=== PATIENT | female | born 1965 | race Caucasian/White ===

== ENCOUNTER 2020-05-18 14:20 | Emergency (ER) | payer MEDICAID ==
[~2020-05-18] VITALS: Ht 160 cm; Wt 54.4 kg
[~2020-05-18 14:20] MED LIST: GEMF600T; LISI-708; METF-371; PROC10TA2; SITA100T7; WARF4TAB2
[2020-05-18 15:22] VITALS: BP 127/69
[2020-05-18] MEDS ORDERED: IBUPROFEN 800 MG TAB PO ONE (15:45)
== END 2020-05-18 16:19 | disposition home or self-care (01) ==
LOC: EDBD 14:20 → ER 14:20
DX: S93.402A Sprain of unspecified ligament of left ankle, initial encounter (principal); X58.XXXA Exposure to other specified factors, initial encounter; Y93.01 Activity, walking, marching and hiking; Y92.89 Other specified places as the place of occurrence of the external cause; Y99.8 Other external cause status
CPT/HCPCS: 73610

== ENCOUNTER 2020-06-12 17:46 | Inpatient (IN) | payer MEDICAID ==
[~2020-06-12] VITALS: Ht 167.6 cm; Wt 68.8 kg
[2020-06-12] MEDS ORDERED: SODIUM CHLORIDE 0.9% 1,000 ML IV ONE (18:45)
[2020-06-12 21:35] LABS: Basophils # (auto) 0 10 ^3/uL (0-0.2); Basophils % (auto) 0.9 % (0.0-2.0); Eosinophils # (auto) 0.2 10 ^3/uL (0-0.8); Hemoglobin 12.4 g/dL (12.2-16.2); Lymphocytes # (auto) 0.9 10 ^3/uL (0.4-5.4); Lymphocytes % (auto) 19.9 % (10.0-50.0); Mean Corpuscular Hemoglobin 27.1 pg (28.0-32.0); Mean Corpuscular Hgb Conc. 31.9 g/dL (32.0-36.0); Monocytes # (auto) 0.3 10 ^3/uL (0-1.3); Neutrophils % (auto) 69.2 % (37.0-80.0); Nucleated Red Blood Cells % 0.2 %; Platelet Count (auto) 267 10^3/uL (140-450); Red Blood Cells 4.58 10^6/uL (4.0-5.20); Red Cell Distribution Width 18.7 % (11.8-14.3); White Blood Cell 4.4 10^3/uL (4.4-10.8)
[2020-06-12 21:51] LABS: BUN/Creatinine Ratio 29.2; Calcium 10.2 mg/dL (8.5-10.1); Magnesium 2.1 mg/dL (1.6-2.6); Potassium 4.4 mmol/L (3.5-5.1)
[2020-06-12 21:57] LABS: Bilirubin, Total 0.3 mg/dL (0.2-1.0); Total Protein 6.9 g/dL (6.4-8.2)
[2020-06-13] MEDS ORDERED: ACETAMINOPHEN 325 MG TAB PO PRN (00:45)
[2020-06-13] MEDS ORDERED: DEXTROSE (50%) 50ML SYRG IV PRN (00:45)
[2020-06-13] MEDS ORDERED: ONDANSETRON HCL 4 MG/2 ML VIAL IV PRN (00:45)
[2020-06-13] MEDS ORDERED: DOCUSATE SOD 100 MG CAP PO PRN (00:45)
[2020-06-13] MEDS ORDERED: TEMAZEPAM 15 MG CAP PO PRN (00:45)
--- NOTE | 2020-06-13 02:00 | NUR ---
pt arrived from ED department and assessed. pt refused to have her skin photographed at this time. pt AAOx4 to PPT but not able to verbalize reason for admit. pt was oriented to room and use of call light for assistance. bed in lowest and locked position with rails up x2, call light within reach of pt.
[2020-06-13] MEDS ORDERED: RIV15T PO (02:10)
[2020-06-13] MEDS ORDERED: DAPA1TAB4 PO (02:10)
--- NOTE | 2020-06-13 03:55 | NUR ---
attempted to obtain accu check on pt, pt refused to have accu check performed at this time. will make day shift RN aware. unable to administer pt's order insulin without accu check results.
[2020-06-13] MEDS: ACCU-CHEK COMFORT CURVE STRIP VI SCH ×6 (04:00→23:50)
[2020-06-13] MEDS: InsuLIN REG 1unit/0.01ml Soln (100units/ml) SC SCH ×6 (04:00→23:50)
[2020-06-13 05:00] VITALS: BP 104/67
[2020-06-13] MEDS: SODIUM CHLORIDE 0.9% 1,000 ML IV SCH ×2 (05:33→17:46)
[2020-06-13 08:00] VITALS: BP 87/48
[2020-06-13 09:00] VITALS: BP 97/57
[2020-06-13 10:30] LABS: Basophils # (auto) 0 10 ^3/uL (0-0.2); Basophils % (auto) 1.2 % (0.0-2.0); Eosinophils # (auto) 0.2 10 ^3/uL (0-0.8); Hemoglobin 11.4 g/dL (12.2-16.2); Lymphocytes # (auto) 0.8 10 ^3/uL (0.4-5.4); Lymphocytes % (auto) 20.5 % (10.0-50.0); Mean Corpuscular Hemoglobin 27.6 pg (28.0-32.0); Mean Corpuscular Hgb Conc. 31.7 g/dL (32.0-36.0); Monocytes # (auto) 0.3 10 ^3/uL (0-1.3); Monocytes % (auto) 6.8 % (0.0-12.0); Neutrophils # (auto) 2.5 10 ^3/uL (1.6-8.6); Neutrophils % (auto) 65.5 % (37.0-80.0); Nucleated Red Blood Cells % 0.4 %; Platelet Count (auto) 233 10^3/uL (140-450); Red Blood Cells 4.14 10^6/uL (4.0-5.20); Red Cell Distribution Width 18.5 % (11.8-14.3); White Blood Cell 3.9 10^3/uL (4.4-10.8)
[2020-06-13 10:47] LABS: Calcium 9.8 mg/dL (8.5-10.1); Potassium 3.8 mmol/L (3.5-5.1)
[2020-06-13 13:00] VITALS: BP 126/74
--- NOTE | 2020-06-13 16:30 | NUR ---
DR. WILLIAMSON NOTIFIED OF RESULT EXTREMITY VENOUS STUDY EXTENSIVE SADIE DVT. NEW ORDER OBTAINED LOVENOX 1MG/KG Q HRS. WILL CARRY OUT ORDER.
[2020-06-13] MEDS: MORPHINE SULF INJ 2 MG/ML SYRINGE 1ML IV PRN (16:53)
[2020-06-13 16:54] VITALS: BP 103/67
--- NOTE | 2020-06-13 19:15 | NUR ---
assumed care, pt. awake, no c/o pain, no sob.
[2020-06-13 20:37] LABS: Urine Bacteria FEW /hpf (None Seen); Urine Blood Negative /uL (Negative); Urine Specific Gravity 1.007 (1.001-1.035); Urine WBC 1 /hpf (0 - 5)
[2020-06-13 20:44] LABS: Alcohol, Urine < 3.0 mg/dL (0-10); Amphetamine Screen, Urine NEGATIVE (NEGATIVE); Barbiturate Scree,Urine NEGATIVE (NEGATIVE); Benzodiazephine Screen, Urine NEGATIVE (NEGATIVE); Cannabinoid Screen, Urine NEGATIVE (NEGATIVE); Cocaine Screen, Urine NEGATIVE (NEGATIVE); Opiate Scree,Urine NEGATIVE (NEGATIVE); Phencyclidine Screen, Urine NEGATIVE (NEGATIVE)
[2020-06-13] MEDS: ENOXAPARIN SOD 60 MG/0.6 ML SYRINGE SC SCH (21:12)
[2020-06-13] MEDS: ATORVASTATIN 20 MG TAB PO SCH (21:12)
[2020-06-13 22:00] VITALS: BP 101/62
[2020-06-13] MEDS ORDERED: LORazepam 2MG/ML-1ML VIAL IV PRN (23:45)
[2020-06-14] MEDS: MORPHINE SULF INJ 2 MG/ML SYRINGE 1ML IV PRN (03:15)
[2020-06-14] MEDS: InsuLIN REG 1unit/0.01ml Soln (100units/ml) SC SCH ×5 (04:00→20:42)
[2020-06-14] MEDS: ACCU-CHEK COMFORT CURVE STRIP VI SCH ×5 (04:03→20:41)
[2020-06-14 05:00] VITALS: BP 99/64
[2020-06-14 07:52] LABS: BUN/Creatinine Ratio 35.1; Calcium 9.8 mg/dL (8.5-10.1); Potassium 4.3 mmol/L (3.5-5.1)
--- NOTE | 2020-06-14 08:23 | NUR ---
Opening Shift Note Assumed patient care from [facility]. Patient currently sitting up in bed, eating breakfast. No signs of distress at this time. Patient is AOx3-4, on room air, respirations even and unlabored. Safety precautions in place, patient encouraged to call PRN. Will continue to monitor.
[2020-06-14 08:58] VITALS: BP 101/59
[2020-06-14] MEDS: ENOXAPARIN SOD 60 MG/0.6 ML SYRINGE SC SCH ×2 (09:38→21:38)
[2020-06-14] MEDS: SODIUM CHLORIDE 0.9% 1,000 ML IV SCH (09:38)
[2020-06-14] MEDS: HYDROcodone-ACET 5/325MG TAB PO PRN ×2 (09:55→14:37)
[2020-06-14 13:00] VITALS: BP_SYST 111; BP_SYST 144; BP_DIAS 106; BP_DIAS 67
--- NOTE | 2020-06-14 14:10 | NUR ---
at Bedside Dr. Roper at bedside discussing plan of care with patient. New orders received.
[2020-06-14] MEDS ORDERED: cefTRIAXone 1GM/50ML D5W 50 ML IV ONE (14:15)
--- NOTE | 2020-06-14 15:44 | NUR ---
New IV New IV started on left forearm, 22gauge. Patient tolerated well. Blood return noted, flushes easily. Right forearm IV discontinued due to signs of infiltration and pain. Safety precautions in place, patient encouraged to call PRN, call light within reach. Will continue to monitor.
[2020-06-14 17:00] VITALS: BP 106/65
--- NOTE | 2020-06-14 17:30 | NUR ---
at Station Dr. Mendoza at station, no new orders at this time.
[2020-06-14] MEDS: ATORVASTATIN 20 MG TAB PO SCH (21:38)
[2020-06-14 22:00] VITALS: BP 87/49
[2020-06-15 00:16] VITALS: BP 106/67
[2020-06-15] MEDS: ACCU-CHEK COMFORT CURVE STRIP VI SCH ×6 (00:19→21:00)
[2020-06-15] MEDS: HYDROcodone-ACET 5/325MG TAB PO PRN ×2 (00:42→08:42)
[2020-06-15] MEDS: LORazepam 0.5 MG TAB PO PRN ×2 (01:45→21:09)
[2020-06-15] MEDS: SODIUM CHLORIDE 0.9% 1,000 ML IV SCH ×2 (02:40→21:03)
[2020-06-15] MEDS: InsuLIN REG 1unit/0.01ml Soln (100units/ml) SC SCH ×6 (04:31→22:12)
[2020-06-15 05:00] VITALS: BP 92/52
[2020-06-15 06:35] LABS: Basophils # (auto) 0 10 ^3/uL (0-0.2); Basophils % (auto) 1.2 % (0.0-2.0); Eosinophils # (auto) 0.2 10 ^3/uL (0-0.8); Eosinophils % (auto) 6.1 % (0.0-7.0); Hematocrit 36.7 % (36.0-46.0); Hemoglobin 11.6 g/dL (12.2-16.2); Lymphocytes # (auto) 1.6 10 ^3/uL (0.4-5.4); Lymphocytes % (auto) 41.9 % (10.0-50.0); Mean Corpuscular Hemoglobin 27.2 pg (28.0-32.0); Mean Corpuscular Hgb Conc. 31.7 g/dL (32.0-36.0); Mean Corpuscular Volume 85.6 fL (80.0-100.0); Monocytes # (auto) 0.3 10 ^3/uL (0-1.3); Monocytes % (auto) 7.3 % (0.0-12.0); Neutrophils # (auto) 1.7 10 ^3/uL (1.6-8.6); Neutrophils % (auto) 43.5 % (37.0-80.0); Nucleated Red Blood Cells % 0.1 %; Platelet Count (auto) 231 10^3/uL (140-450); Red Blood Cells 4.28 10^6/uL (4.0-5.20); Red Cell Distribution Width 18.2 % (11.8-14.3); White Blood Cell 3.9 10^3/uL (4.4-10.8)
[2020-06-15 06:48] LABS: BUN/Creatinine Ratio 34.1; Calcium 9.7 mg/dL (8.5-10.1); Potassium 4.2 mmol/L (3.5-5.1)
--- NOTE | 2020-06-15 07:30 | NUR ---
Opening Shift Note Assumed patient care from NOC RN. Patient sitting up in bed, no signs of distress at this time. Respirations even and unlabored on room air. Safety precautions in place, call light within reach.
[2020-06-15] MEDS: cefTRIAXone 1GM/50ML D5W 50 ML IV SCH (08:42)
[2020-06-15] MEDS: ENOXAPARIN SOD 60 MG/0.6 ML SYRINGE SC SCH ×2 (08:42→21:09)
[2020-06-15 09:00] VITALS: BP 111/63
--- NOTE | 2020-06-15 09:00 | NUR ---
Weekend immigration law specialist-I did not receive a page regarding the social service consult for this patient.
[2020-06-15] MEDS ORDERED: PROCHLORPERAZINE MALEATE 10 MG TAB PO PRN (12:15)
[2020-06-15 13:00] VITALS: BP_SYST 103; BP_SYST 98; BP_DIAS 65; BP_DIAS 70
--- NOTE | 2020-06-15 13:00 | NUR ---
at bedside Dr. Roper at bedside discussing plan of care with patient.
[2020-06-15 13:57] LABS: INR 1.04 (0.9-1.15)
[2020-06-15] MEDS ORDERED: diphenhdrAMINE HCL 25 MG CAP PO PRN (14:30)
--- NOTE | 2020-06-15 14:30 | NUR ---
Spoke with YOVANI Spoke with Deepa PINA regarding patient status.
--- NOTE | 2020-06-15 16:28 | NUR ---
SS consult due to pt being homeless. Per pt prior to her admission to [facility] she was at a board and care for one day. Prior to that board and care she was at [facility]. Discussed with pt options for placement upon discharge. Pt states she cant do anything for herself and that the previous facility could not help her. Pt also states she has no income and was not paying for board and care. Discussed with pt that the only options would be skilled facility for physical therapy or prison placement. Requested pt expound on her needs and what shes unable to do. Pt could only state she cant dress herself but no specific reason why. Explained to pt that therapy at a facility requires her to get up and work with the therapist but pt states she doesnt like it when they tell her what to do. Explained this is all a part of the therapy and helping her to get better. Pt states she would go to the board and [facility] but has no information on the phone number or name of facility. If information can be obtained on [facility] and they are willing to accept pt she could return with home health and a wheelchair. To followup on obtaining name of previous facility. Addendum: 06/15/20 at 1628 by JAMI RAYMOND Amended: Links added.
[2020-06-15 17:00] VITALS: BP 99/64
[2020-06-15] MEDS ORDERED: WARFARIN SODIUM 2 MG TAB PO ONE (17:00)
--- NOTE | 2020-06-15 18:37 | NUR ---
Home Meds Per Dr. Roper request, asked patient about home medications and if she has them available. Per patient, she currently does not have an prescriptions filled. Per MD, will continue with plan of care and continue ordered medications.
--- NOTE | 2020-06-15 18:38 | NUR ---
Wrong Time: 3036
[2020-06-15] MEDS: ATORVASTATIN 20 MG TAB PO SCH (21:09)
[2020-06-15 22:31] VITALS: BP 104/62
[2020-06-16] MEDS: ACCU-CHEK COMFORT CURVE STRIP VI SCH ×6 (01:06→20:19)
[2020-06-16] MEDS: InsuLIN REG 1unit/0.01ml Soln (100units/ml) SC SCH ×6 (01:14→20:20)
[2020-06-16 05:23] VITALS: BP 115/70
[2020-06-16 06:09] LABS: Basophils # (auto) 0.1 10 ^3/uL (0-0.2); Basophils % (auto) 1.2 % (0.0-2.0); Eosinophils # (auto) 0.2 10 ^3/uL (0-0.8); Eosinophils % (auto) 4.9 % (0.0-7.0); Hematocrit 37.2 % (36.0-46.0); Lymphocytes # (auto) 1.4 10 ^3/uL (0.4-5.4); Lymphocytes % (auto) 30.4 % (10.0-50.0); Mean Corpuscular Hemoglobin 27.5 pg (28.0-32.0); Mean Corpuscular Hgb Conc. 32.2 g/dL (32.0-36.0); Mean Corpuscular Volume 85.2 fL (80.0-100.0); Monocytes # (auto) 0.3 10 ^3/uL (0-1.3); Monocytes % (auto) 7.5 % (0.0-12.0); Neutrophils # (auto) 2.6 10 ^3/uL (1.6-8.6); Nucleated Red Blood Cells % 0.2 %; Platelet Count (auto) 227 10^3/uL (140-450); Red Blood Cells 4.36 10^6/uL (4.0-5.20); Red Cell Distribution Width 17.7 % (11.8-14.3); White Blood Cell 4.6 10^3/uL (4.4-10.8)
[2020-06-16 06:17] LABS: INR 1.06 (0.9-1.15)
[2020-06-16 06:23] LABS: BUN/Creatinine Ratio 31.4; Calcium 9.5 mg/dL (8.5-10.1); Potassium 4.2 mmol/L (3.5-5.1)
[2020-06-16 09:00] VITALS: BP 96/54
[2020-06-16] MEDS: cefTRIAXone 1GM/50ML D5W 50 ML IV SCH (09:27)
[2020-06-16] MEDS: ENOXAPARIN SOD 60 MG/0.6 ML SYRINGE SC SCH ×2 (10:21→22:05)
[2020-06-16] MEDS: GEMFIBROZIL 600 MG TAB PO SCH (10:21)
[2020-06-16] MEDS: HYDROcodone-ACET 5/325MG TAB PO PRN ×2 (10:35→16:50)
[2020-06-16] MEDS: SODIUM CHLORIDE 0.9% 1,000 ML IV SCH (11:52)
--- NOTE | 2020-06-16 12:52 | NUR ---
Est energy needs 5351-2865 kcal (25-27 kcal/kg BW 70kg) Est protein needs 56-70g (0.8-1g/kg BW 70kg) will reassess prn. Addendum: 06/16/20 at [address] Amended: Links added.
[2020-06-16 12:54] VITALS: BP 123/74
[2020-06-16 17:00] VITALS: BP 98/61
[2020-06-16] MEDS ORDERED: WARFARIN SODIUM 5 MG TAB PO ONE (17:00)
--- NOTE | 2020-06-16 19:10 | NUR ---
Opening Shift Note Assumed care of patient, awake and alert. No S/S of distress/SOB or pain. Instructed on POC and to call for assist PRN, will continue to monitor for changes Q1hr and PRN. Bed locked in lowest position, HOB elevated at least 30 degrees, call light is within reach and side rails up x 2.
[2020-06-16 22:00] VITALS: BP 93/58
[2020-06-16] MEDS: ATORVASTATIN 20 MG TAB PO SCH (22:04)
[2020-06-17] MEDS: ACCU-CHEK COMFORT CURVE STRIP VI SCH ×6 (00:22→20:00)
[2020-06-17] MEDS: InsuLIN REG 1unit/0.01ml Soln (100units/ml) SC SCH ×6 (00:23→20:00)
[2020-06-17] MEDS: SODIUM CHLORIDE 0.9% 1,000 ML IV SCH ×2 (04:40→22:29)
[2020-06-17 05:30] VITALS: BP 104/53
[2020-06-17 05:51] LABS: Basophils # (auto) 0.1 10 ^3/uL (0-0.2); Basophils % (auto) 1.6 % (0.0-2.0); Eosinophils # (auto) 0.3 10 ^3/uL (0-0.8); Eosinophils % (auto) 7.4 % (0.0-7.0); Hematocrit 38.1 % (36.0-46.0); Lymphocytes # (auto) 1.5 10 ^3/uL (0.4-5.4); Lymphocytes % (auto) 34.5 % (10.0-50.0); Mean Corpuscular Hemoglobin 27.4 pg (28.0-32.0); Mean Corpuscular Hgb Conc. 31.6 g/dL (32.0-36.0); Mean Corpuscular Volume 86.9 fL (80.0-100.0); Monocytes # (auto) 0.3 10 ^3/uL (0-1.3); Monocytes % (auto) 6.5 % (0.0-12.0); Neutrophils # (auto) 2.2 10 ^3/uL (1.6-8.6); Nucleated Red Blood Cells % 0.5 %; Platelet Count (auto) 192 10^3/uL (140-450); Red Blood Cells 4.38 10^6/uL (4.0-5.20); Red Cell Distribution Width 18.5 % (11.8-14.3); White Blood Cell 4.3 10^3/uL (4.4-10.8)
[2020-06-17 06:13] LABS: BUN/Creatinine Ratio 29.8; Calcium 9.5 mg/dL (8.5-10.1); Potassium 4.3 mmol/L (3.5-5.1)
--- NOTE | 2020-06-17 07:19 | NUR ---
END OF SHIFT NOTE ENDORSED CARE TO DAY SHIFT RN
[2020-06-17 08:00] VITALS: BP 108/60
[2020-06-17] MEDS: HYDROcodone-ACET 5/325MG TAB PO PRN ×2 (08:06→18:03)
[2020-06-17] MEDS: cefTRIAXone 1GM/50ML D5W 50 ML IV SCH (08:11)
[2020-06-17] MEDS: GEMFIBROZIL 600 MG TAB PO SCH (09:29)
[2020-06-17] MEDS: ENOXAPARIN SOD 60 MG/0.6 ML SYRINGE SC SCH ×2 (09:29→22:29)
[2020-06-17 10:13] LABS: INR 1.13 (0.9-1.15)
[2020-06-17 12:00] VITALS: BP 95/50
[2020-06-17] MEDS ORDERED: WARFARIN SODIUM 2.5 MG TAB PO ONE (17:00)
[2020-06-17 17:04] VITALS: BP 94/62
--- NOTE | 2020-06-17 20:10 | NUR ---
open note assumed care of pt. upon entering room pt eyes closed, breathing even and unlabored on room air. this nurse woke pt to assess and take her blood glucose, to which she politely refused. this nurse educated on its purpose and she stated "my fingers hurt, i need a break". pt updated on plan of care. pt denies any pain at this time. bed locked, low and 2x rails up. call light in reach, this nurse to round q1hr and prn. pt encouraged to call as needed.
[2020-06-17 22:00] VITALS: BP 94/58
[2020-06-17] MEDS: ATORVASTATIN 20 MG TAB PO SCH (22:29)
[2020-06-18] MEDS: ACCU-CHEK COMFORT CURVE STRIP VI SCH ×4 (00:50→12:13)
[2020-06-18] MEDS: InsuLIN REG 1unit/0.01ml Soln (100units/ml) SC SCH ×4 (00:51→12:14)
[2020-06-18 05:00] VITALS: BP 92/57
[2020-06-18 06:46] LABS: Basophils # (auto) 0 10 ^3/uL (0-0.2); Basophils % (auto) 0.8 % (0.0-2.0); Eosinophils # (auto) 0.3 10 ^3/uL (0-0.8); Hematocrit 37.3 % (36.0-46.0); Hemoglobin 12.2 g/dL (12.2-16.2); Lymphocytes # (auto) 1.7 10 ^3/uL (0.4-5.4); Lymphocytes % (auto) 37.6 % (10.0-50.0); Mean Corpuscular Hemoglobin 27.8 pg (28.0-32.0); Mean Corpuscular Hgb Conc. 32.6 g/dL (32.0-36.0); Mean Corpuscular Volume 85.2 fL (80.0-100.0); Monocytes # (auto) 0.3 10 ^3/uL (0-1.3); Monocytes % (auto) 6.4 % (0.0-12.0); Neutrophils # (auto) 2.2 10 ^3/uL (1.6-8.6); Neutrophils % (auto) 49.2 % (37.0-80.0); Nucleated Red Blood Cells % 0.5 %; Platelet Count (auto) 237 10^3/uL (140-450); Red Blood Cells 4.38 10^6/uL (4.0-5.20); Red Cell Distribution Width 18.6 % (11.8-14.3); White Blood Cell 4.5 10^3/uL (4.4-10.8)
[2020-06-18 06:48] LABS: INR 1.23 (0.9-1.15); Potassium 4.2 mmol/L (3.5-5.1)
[2020-06-18 06:59] LABS: BUN/Creatinine Ratio 38.3
[2020-06-18] MEDS: cefTRIAXone 1GM/50ML D5W 50 ML IV SCH (08:26)
[2020-06-18 09:00] VITALS: BP 100/60
[2020-06-18] MEDS: GEMFIBROZIL 600 MG TAB PO SCH (10:32)
[2020-06-18] MEDS: ENOXAPARIN SOD 60 MG/0.6 ML SYRINGE SC SCH (10:32)
[2020-06-18] MEDS: HYDROcodone-ACET 5/325MG TAB PO PRN ×2 (10:37→15:26)
--- NOTE | 2020-06-18 12:00 | NUR ---
PATIENT COMPLAINING OF CHEST PAIN IN THE STERNAL AREA. PATIENT IS UNABLE TO DESCRIBE PAIN OTHER THAN STATING "IT HURTS". PATIENT RESPIRATORY EFFORT IS NORMAL AND DENIES SHORTNESS OF BREATH. THERE IS NO S/S OF DISTRESS. MD MADE AWARE OF PATIENT COMPLAINTS. NO NEW ORDERS AT THIS TIME.
--- NOTE | 2020-06-18 12:40 | NUR ---
SPOKE WITH PALLAVI PINA ABOUT PATIENT PENDING DISCHARGE. DIALED PALLAVI IN PATIENT'S ROOM AND SHE WAS ABLE TO SPEAK WITH THE PATIENT ABOUT GETTING A HOLD OF HER . PALLAVI WILL FOLLOW UP WITH THE PATIENT IN AN HOUR.
[2020-06-18 13:00] VITALS: BP 102/57
[2020-06-18] MEDS: SODIUM CHLORIDE 0.9% 1,000 ML IV SCH (14:00)
--- NOTE | 2020-06-18 15:20 | NUR ---
D/C Planning Per SW II Aria patient does not want to return to the boarding care she came from or be placed at a homeless correction. Per SW II Aria patient state she will be staying with her . Regarding social service consult for transportation. Spoke to patient regarding transportation home. Per patient she does not know the address of her home and she can't get a hold of her at this time. Patient is ready to discharge and once she knows address she can notified nurse or social service. Informed CHIQUI Gonzalez.
[2020-06-18 15:21] VITALS: BP 102/57
--- NOTE | 2020-06-18 16:24 | NUR ---
PATIENT IS BEING DISCHARGED TO THE LOBBY REQUESTED BY SS TO WAIT FOR HER . CALLED [facility] AND FAXED PRESCRIPTION TO THEM, LET JEREMIAH FROM [facility] KNOW THAT SHE WILL BE DOWN SHORTLY. PATIENT VS WNL. IV REMOVED AND PRESSURE DRESSING IN PLACE, PRESSURE WAS HELD TO SITE FOR APPROXIMATELY 2 MINUTES AND NO S/S OF OVERT BLEEDING. DISCHARGE MATERIALS AND EDUCATION GIVEN FOR DIET, ACTIVITY, F//U. PATIENT VERBALIZED UNDERSTANDING OF INSTRUCTIONS GIVEN. SHIRA TO TAKE PATIENT DOWN TO LOBBY.
[2020-06-18] MEDS ORDERED: WARFARIN SODIUM 10 MG TAB PO ONE (17:00)
[2020-06-18] MEDS ORDERED: APIXABAN 5 MG TAB PO SCH (22:00)
== END 2020-06-18 14:38 | disposition home or self-care (01) | DRG 197 ==
LOC: EDBD 17:46 → ER 17:46 → OVERFLOW 17:47 → WEST WING 06-13 01:30
PROVIDERS: ADMIT Hospitalist; ATTEND Internal Medicine
DX: I82.403 Acute embolism and thrombosis of unspecified deep veins of lower extremity, bilateral (principal); F43.22 Adjustment disorder with anxiety; R62.7 Adult failure to thrive; E11.21 Type 2 diabetes mellitus with diabetic nephropathy; E78.5 Hyperlipidemia, unspecified; Z86.718 Personal history of other venous thrombosis and embolism; F17.210 Nicotine dependence, cigarettes, uncomplicated; Z59.0 Homelessness; M79.10 Myalgia, unspecified site; M19.072 Primary osteoarthritis, left ankle and foot; M19.071 Primary osteoarthritis, right ankle and foot; D25.9 Leiomyoma of uterus, unspecified; E11.40 Type 2 diabetes mellitus with diabetic neuropathy, unspecified; F31.9 Bipolar disorder, unspecified; G89.4 Chronic pain syndrome; K76.0 Fatty (change of) liver, not elsewhere classified; M47.816 Spondylosis without myelopathy or radiculopathy, lumbar region; M51.37 Other intervertebral disc degeneration, lumbosacral region; N28.1 Cyst of kidney, acquired; Z79.01 Long term (current) use of anticoagulants; Z90.49 Acquired absence of other specified parts of digestive tract
CPT/HCPCS: 36415; 70450; 71045; 72148; 73610; 74176; 76775; 76856; 80048; 80053; 80061; 80307; 81001; 82533; 82550; 82962; 83036; 83735; 83880; 84443; 84484; 85025; 85610; 85730; 87086; 93005; 93970; 97116; 97163; 97530; G0378; J0696; J1815

== ENCOUNTER 2020-06-18 23:37 | Emergency (ER) | payer MEDICAID ==
[~2020-06-18] VITALS: Ht 160 cm; Wt 65.8 kg
[~2020-06-18 23:37] MED LIST changes: +DAPA1TAB4 PO; +RIV15T PO
[2020-06-19 03:57] LABS: INR 1.32 (0.9-1.15); Partial Thromboplastin Time 25.6 sec (23.64-32.05)
[2020-06-19 03:59] LABS: Alanine Aminotransferase 39 U/L (13-56); Albumin 3.6 g/dL (3.4-5.0); Anion Gap 7 (5-15); Aspartate Aminotransferase 24 U/L (15-37); BUN/Creatinine Ratio 34.8; Blood Urea Nitrogen 16 mg/dL (7-18); Calcium 9.8 mg/dL (8.5-10.1); Carbon Dioxide 24 mmol/L (21-32); Chloride 108 mmol/L (98-107); GFR African American 181 mL/min; GFR Non-African American 149 mL/min; Glucose 149 mg/dL (74-106); Magnesium 2.3 mg/dL (1.6-2.6); Potassium 4.3 mmol/L (3.5-5.1); Sodium 139 mmol/L (136-145)
[2020-06-19 04:01] LABS: Alkaline Phosphatase 101 U/L (45-117); Bilirubin, Total 0.4 mg/dL (0.2-1.0); Total Protein 7.7 g/dL (6.4-8.2)
[2020-06-19 04:42] LABS: Basophils # (auto) 0.2 10 ^3/uL (0-0.2); Basophils % (auto) 2.8 % (0.0-2.0); Eosinophils # (auto) 0.2 10 ^3/uL (0-0.8); Eosinophils % (auto) 3.6 % (0.0-7.0); Hematocrit 40.4 % (36.0-46.0); Hemoglobin 13.1 g/dL (12.2-16.2); Lymphocytes # (auto) 1.8 10 ^3/uL (0.4-5.4); Lymphocytes % (auto) 32.8 % (10.0-50.0); Mean Corpuscular Hemoglobin 27.4 pg (28.0-32.0); Mean Corpuscular Hgb Conc. 32.4 g/dL (32.0-36.0); Mean Corpuscular Volume 84.5 fL (80.0-100.0); Monocytes # (auto) 0.3 10 ^3/uL (0-1.3); Neutrophils % (auto) 54.8 % (37.0-80.0); Nucleated Red Blood Cells % 0.2 %; Platelet Count (auto) 260 10^3/uL (140-450); Red Blood Cells 4.78 10^6/uL (4.0-5.20); Red Cell Distribution Width 18.3 % (11.8-14.3); White Blood Cell 5.5 10^3/uL (4.4-10.8)
[2020-06-19 06:10] LABS: Urine Bacteria FEW /hpf (None Seen); Urine Blood 2+ /uL (Negative); Urine Specific Gravity 1.014 (1.001-1.035); Urine WBC 6 /hpf (0 - 5)
[2020-06-19] MEDS ORDERED: IOHEXOL 350 MG/ML 100ML IJ ONE (06:11)
[2020-06-19 06:21] LABS: Alcohol, Urine < 3.0 mg/dL (0-10); Amphetamine Screen, Urine NEGATIVE (NEGATIVE); Barbiturate Scree,Urine NEGATIVE (NEGATIVE); Benzodiazephine Screen, Urine NEGATIVE (NEGATIVE); Cannabinoid Screen, Urine NEGATIVE (NEGATIVE); Cocaine Screen, Urine NEGATIVE (NEGATIVE); Opiate Scree,Urine NEGATIVE (NEGATIVE); Phencyclidine Screen, Urine NEGATIVE (NEGATIVE)
[2020-06-19 07:46] VITALS: BP 107/67
--- NOTE | 2020-06-19 09:30 | NUR ---
D/C planning Per SW II Aria she spoke to patient nurse Drew who stated patient is refusing senior care. Placed a call to CHIQUI Contreras who stated patient is refusing senior care and resources. Per CHIQUI Russell they provided patient a bus pass.
== END 2020-06-19 09:45 | disposition home or self-care (01) ==
LOC: EDBD 23:37 → ER 23:39
DX: R07.89 Other chest pain (principal); R79.1 Abnormal coagulation profile; Z87.891 Personal history of nicotine dependence; Z59.0 Homelessness
CPT/HCPCS: 36415; 80053; 80307; 81001; 83735; 83880; 84443; 84484; 85025; 85379; 85610; 85730; 93005; 99284; Q9967